=== PATIENT | male | born 1955 | race Caucasian/White ===

== ENCOUNTER 2017-09-14 16:44 | Inpatient (IN) | payer OTHER, MEDICARE ==
--- NOTE | 2017-09-14 17:23 | ER Document Report ---
ED Medical Screen (RME) - General Chief Complaint: Foot Pain Stated Complaint: FOOT PAIN Time Seen by Provider: 09/14/17 17:11 Notes: 62-year-old NIDDM patient with pain and swelling to his left foot and leg. He has had callus underneath the foot for quite some time, he states there is been some drainage in the past 1-2 days. I have greeted and performed a rapid initial assessment of this patient. A comprehensive ED assessment and evaluation of the patient, analysis of test results and completion of the medical decision making process will be conducted by additional ED providers. TRAVEL OUTSIDE OF THE [place] IN LAST 30 DAYS: No - Related Data Allergies/Adverse Reactions: fluorescein Allergy (Verified 09/14/17 17:12) mushroom Allergy (Verified 09/14/17 17:12) Past Medical History - Social History Frequency of alcohol use: None Drug Abuse: None - Past Medical History Cardiac Medical History: Reports: Hx Coronary Artery Disease - CARDIOMYOPATHY, Hx Hypertension Denies: Hx Heart Attack Pulmonary Medical History: Denies: Hx Asthma, Hx Bronchitis, Hx COPD, Hx Pneumonia Neurological Medical History: Denies: Hx Cerebrovascular Accident, Hx Seizures Endocrine Medical History: Reports: Hx Diabetes Mellitus Type 2 Renal/ Medical History: Denies: Hx Peritoneal Dialysis Musculoskeltal Medical History: Reports Hx Arthritis - Immunizations Hx Diphtheria, Pertussis, Tetanus Vaccination: No Physical Exam - Vital signs Vitals: Temp Pulse Resp BP Pulse Ox 98.2 F 112 H 16 139/63 H 96 09/14/17 16:52 09/14/17 16:52 09/14/17 16:52 09/14/17 16:52 09/14/17 16:52 Course - Vital Signs Vital signs: Temp Pulse Resp BP Pulse Ox 98.2 F 112 H 16 139/63 H 96 09/14/17 16:52 09/14/17 16:52 09/14/17 16:52 09/14/17 16:52 09/14/17 16:52
[2017-09-14 17:48] LABS: ABSOLUTE BASOPHILS # (AUTO) 0.1 10^3/uL (0.0-0.2); ABSOLUTE EOSINOPHILS # (AUTO) 0.1 10^3/uL (0.0-0.6); ABSOLUTE MONOCYTES (AUTO) 1.3 10^3/uL (0.1-1.4); ABSOLUTE NEUT (AUTO) 14.1 10^3/uL (1.7-8.2); BASOPHILS % (AUTO) 0.5 % (0-2); EOSINOPHILS % (AUTO) 0.4 % (0-6); HEMATOCRIT 36.2 % (37.9-51.0); HEMOGLOBIN 12.6 g/dL (13.5-17.0); LYMPHOCYTES % (AUTO) 5.9 % (13-45); MEAN CORPUSCULAR HEMOGLOBIN 30.5 pg (27.0-33.4); MEAN CORPUSCULAR HGB CONC 34.8 g/dL (32.0-36.0); MEAN CORPUSCULAR VOLUME 88 fl (80-97); MONOCYTES % (AUTO) 7.7 % (3-13); PLATELET COUNT 305 10^3/uL (150-450); RED BLOOD COUNT 4.13 10^6/uL (4.35-5.55); RED CELL DISTRIBUTION WIDTH 12.7 % (11.5-14.0); SEGMENTED NEUTROPHILS % (AUTO) 85.5 % (42-78); TOTAL CELLS COUNTED % (AUTO) 100 %; WHITE BLOOD COUNT 16.5 10^3/uL (4.0-10.5)
[2017-09-14] MEDS ORDERED: ERTAPENEM SODIUM INJ 1 GM VIAL IV ONE (17:59)
--- NOTE | 2017-09-14 18:00 | RADIOLOGY REPORT (SQ) ---
EXAM DESCRIPTION: FOOT LEFT COMPLETE COMPLETED DATE/TIME: 09/14/2017 5:46 pm REASON FOR STUDY: draining diabetic ulcer COMPARISON: 11/04/2010. NUMBER OF VIEWS: Three views. TECHNIQUE: AP, lateral and oblique radiographic images acquired of the left foot. LIMITATIONS: None. FINDINGS: MINERALIZATION: Normal. BONES: No acute fracture or dislocation. Heel spur. Degenerative changes in the midfoot. Chronic c hanges in the 1st metatarsal phalangeal joint. No focal bony destruction. JOINTS: No effusions. SOFT TISSUES: Soft tissue swelling. Ulceration with soft tissue gas in the plantar soft tissues. No radiopaque foreign body. OTHER: No other significant finding. IMPRESSION: SOFT TISSUE SWELLING WITH ULCERATION AND SOFT TISSUE GAS IN THE PLANTAR SOFT TISSUES. C HRONIC BONY CHANGES. NO ACUTE BONY FINDINGS. TECHNICAL DOCUMENTATION: JOB ID: [id number] [employer]- All Rights Reserved Reading location - IP/workstation name: [email or web address]
[2017-09-14 18:06] LABS: ALANINE AMINOTRANSFERASE 20 U/L (21-72); ALKALINE PHOSPHATASE 74 U/L (38-126); ANION GAP 10 (5-19); ASPARTATE AMINO TRANSFERASE 15 U/L (17-59); BILIRUBIN,DIRECT 0.3 mg/dL (0.0-0.4); BLOOD UREA NITROGEN 16 mg/dL (7-20); CALCIUM 9.5 mg/dL (8.4-10.2); CARBON DIOXIDE 29 mmol/L (22-30); CHLORIDE 88 mmol/L (98-107); GLUCOSE 219 mg/dL (75-110); POTASSIUM 4.1 mmol/L (3.6-5.0); SODIUM 127.3 mmol/L (137-145); TOTAL PROTEIN 6.4 g/dL (6.3-8.2)
[2017-09-14] MEDS ORDERED: VANCOMYCIN HCL INJ 1000 MG VIAL IV ONE (19:42)
[2017-09-14] MEDS ORDERED: CEFTRIAXONE INJ 1000 MG VIAL IV ONE (19:43)
--- NOTE | 2017-09-14 19:49 | ER Document Report ---
ED Extremity Problem, Lower - General Chief Complaint: Foot Pain Stated Complaint: FOOT PAIN Time Seen by Provider: 09/14/17 17:11 Notes: Patient is a 62-year-old male that comes emergency department for chief complaint of pain, redness, and spreading redness to his left foot for the past 4 days. He has diabetes, neuropathy, he is unsure of any wound, he denies history of the same. He does not report fever or chills, nausea or vomiting, or any other specific symptoms at this time. Past medical history of hypertension, orthopedic surgeries, smoking. TRAVEL OUTSIDE OF THE [place] IN LAST 30 DAYS: No - Related Data Allergies/Adverse Reactions: fluorescein Allergy (Verified 09/14/17 17:12) mushroom Allergy (Verified 09/14/17 17:12) Past Medical History - General Information source: Patient - Social History Smoking Status: Current Every Day Smoker Frequency of alcohol use: None Drug Abuse: None Lives with: Family Family History: Reviewed & Not Pertinent Patient has suicidal ideation: No Patient has homicidal ideation: No - Past Medical History Cardiac Medical History: Reports: Hx Coronary Artery Disease - CARDIOMYOPATHY, Hx Hypertension Denies: Hx Heart Attack Pulmonary Medical History: Denies: Hx Asthma, Hx Bronchitis, Hx COPD, Hx Pneumonia Neurological Medical History: Denies: Hx Cerebrovascular Accident, Hx Seizures Endocrine Medical History: Reports: Hx Diabetes Mellitus Type 2 Renal/ Medical History: Denies: Hx Peritoneal Dialysis Musculoskeltal Medical History: Reports Hx Arthritis Past Surgical History: Reports: Hx Herniorrhaphy - Immunizations Hx Diphtheria, Pertussis, Tetanus Vaccination: No Review of Systems - Review of Systems Constitutional: No symptoms reported EENT: No symptoms reported Cardiovascular: No symptoms reported Respiratory: No symptoms reported Gastrointestinal: No symptoms reported Genitourinary: No symptoms reported Male Genitourinary: No symptoms reported Musculoskeletal: See HPI Skin: See HPI Hematologic/Lymphatic: No symptoms reported Neurological/Psychological: No symptoms reported Physical Exam - Vital signs Vitals: Temp Pulse Resp BP Pulse Ox 98.2 F 112 H 16 139/63 H 96 09/14/17 16:52 09/14/17 16:52 09/14/17 16:52 09/14/17 16:52 09/14/17 16:52 Interpretation: Normal - General General appearance: Appears well In distress: None - HEENT Head: Normocephalic, Atraumatic Eyes: Normal Pupils: PERRL - Respiratory Respiratory status: No respiratory distress Chest status: Nontender Breath sounds: Normal Chest palpation: Normal - Cardiovascular Rhythm: Regular, Tachycardia Heart sounds: Normal auscultation, S1 appreciated, S2 appreciated Murmur: Yes Systolic murmur grade 1-6: 1 Normal capillary refill: Yes - Abdominal Inspection: Normal Distension: No distension Bowel sounds: Normal Tenderness: Nontender Organomegaly: No organomegaly - Back Back: Normal, Nontender - Extremities General upper extremity: Normal inspection, Nontender, Normal color, Normal ROM , Normal temperature General lower extremity: Other - Left foot with plantar wound with missing superficial tissue, erythema, abnormal heat, slight malodorous smell, erythema extends up over the dorsal aspect of the foot with some streaking up the ankle and leg. Capillary refill intact, sensation is decreased, dorsalis pedis pulses normal. - Neurological Neuro grossly intact: Yes Cognition: Normal Orientation: AAOx4 [place]ima Coma Scale Eye Opening: Spontaneous Ghazala Coma Scale Verbal: Oriented Ghazala Coma Scale Motor: Obeys Commands Ghazala Coma Scale Total: 15 Speech: Normal Motor strength normal: LUE, RUE, LLE, RLE Sensory: Normal - Psychological Associated symptoms: Normal affect, Normal mood - Skin Skin Temperature: Warm Skin Moisture: Dry Skin Color: Normal Course - Re-evaluation Re-evalutation: Patient's foot examination is concerning, consistent with diabetic wound infection with spreading cellulitis. Patient has leukocytosis, tachycardia. X- ray shows gas formation. 09/14/17 20:[address] Ruby, surgeon on-call, he will come evaluate the patient, he recommends admission to hospitalist with surgical consult at this time. 09/14/17 20:[address] Eduardo, internal medicine, he states he will consult on the patient but he wants the surgeon to admit the patient. Dr. Ruby evaluated the patient at bedside, recommends patient be taken to the operating room to clean out for progression and gas gangrene makes the situation worse. Patient does state agreement with plan. - Vital Signs Vital signs: Temp Pulse Resp BP Pulse Ox 98.8 F 94 18 123/66 94 09/15/17 03:47 09/15/17 03:47 09/15/17 03:47 09/15/17 03:47 04/02/18 03:47 - Laboratory Result Diagrams: 09/14/17 17:42 09/14/17 17:42 Laboratory results interpreted by me: 09/14/17 09/14/17 09/14/17 17:42 17:42 20:15 WBC 16.5 H RBC 4.13 L Hgb 12.6 L Hct 36.2 L Seg Neutrophils % 85.5 H Lymphocytes % 5.9 L Absolute Neutrophils 14.1 H VBG pH 7.44 H Sodium 127.3 L Chloride 88 L Glucose 219 H AST 15 L ALT 20 L Discharge - Discharge Clinical Impression: Cellulitis of left foot Leukocytosis Qualifiers: Leukocytosis type: unspecified Qualified Code(s): D72.829 - Elevated white blood cell count, unspecified Condition: Stable Disposition: ADMITTED INPATIENT Admitting Provider: Surgicalist Unit Admitted: OR
[2017-09-14] MEDS ORDERED: DIPH/PERTUSS(ACELL)/TETANUS VAC/PF 0.5 ML SYR (>=10YO) IM ONE (19:50)
[2017-09-14] MEDS ORDERED: CEFEPIME 2 GM/D5W RTU 2 GM/50 ML RTUPB IV ONE (20:08)
[2017-09-14] MEDS ORDERED: GLUCAGON,HUMAN RECOMB 1 MG INJ IM PRN (20:21)
[2017-09-14] MEDS ORDERED: DEXTROSE 40% GEL 15 GM TUBE PO PRN ×2 (20:21)
[2017-09-14] MEDS ORDERED: DEXTROSE 50%-WATER 25 GM/50 ML DISP.SYRIN IV PRN ×2 (20:21)
[2017-09-14] MEDS ORDERED: NORMAL SALINE 1000 ML 1,000 ML IV ONE (20:23)
[2017-09-14 20:35] LABS: VENOUS BLOOD BASE EXCESS 4.7 mmol/L; VENOUS BLOOD HCO3 29.7 mmol/L (20-32); VENOUS BLOOD PCO2 44.6 mmHg (35-63); VENOUS BLOOD PH 7.44 (7.30-7.42)
--- NOTE | 2017-09-14 21:14 | PDOC H&P ---
History of Present Illness Admission Date/PCP: 09/14/17 20:33 AMIRA PHILLIPS III, MD Patient complains of: Pain foul smell left foot History of Present Illness: TIMO RODRIGUEZ is a 62 year old male Patient reports the emergency department complaining of left foot pain, swelling , drainage, discoloration for the last several days possibly weeks. He has a known chronic left first mal perforans ulcer. He has diabetic neuropathy smokes and peripheral vascular disease. He sees physicians at the [place]. His medical history and records are limited at [facility]. He was evaluated in the emergency department several hours ago by the PA, obtained a foot x-ray which showed gas soft tissues and surgery was consulted; patient is advised admission definitive management. Past Medical History Cardiac Medical History: Reports: Coronary Artery Disease - CARDIOMYOPATHY, Hypertension Denies: Myocardial Infarction Pulmonary Medical History: Denies: Asthma, Bronchitis, Chronic Obstructive Pulmonary Disease (COPD), Pneumonia Neurological Medical History: Denies: Seizures Endocrine Medical History: Reports: Diabetes Mellitus Type 2 Musculoskeltal Medical History: Reports: Arthritis Hematology: Denies: Anemia Past Surgical History Past Surgical History: Reports: Other - Bilateral inguinal hernias. Social History Smoking Status: Current Every Day Smoker Family History Parental Family History Reviewed: Yes Children Family History Reviewed: Yes Sibling(s) Family History Reviewed.: Yes Medication/Allergy Home Medications: Lisinopril/Hydrochlorothiazide [Zestoretic 20-25 Mg Tablet] 1 each PO DAILY 04/26 Metoprolol Tartrate [Lopressor 100 Mg Tablet] 100 mg PO DAILY 05/26/11 Naproxen [Naprosyn] 500 mg PO BID 05/26/11 Carvedilol 3.125 mg PO BID 08/23/15 Glipizide [Glipizide Xl] 10 mg PO ASDIR 08/23/15 Metformin HCl [Glucophage XR 500 mg Tablet] 500 mg PO TID 08/23/15 Aspirin [Aspirin 325 mg Tablet] 325 mg PO DAILY 08/24/15 Allergies/Adverse Reactions: fluorescein Allergy (Verified 09/14/17 17:12) mushroom Allergy (Verified 09/14/17 17:12) Review of Systems Eyes: ABSENT: visual disturbances Ears: ABSENT: hearing changes Cardiovascular: PRESENT: other - Known murmur Respiratory: PRESENT: cough Neurological: PRESENT: other - Peripheral neuropathy chronic Physical Exam Vital Signs: Temp Pulse Resp BP Pulse Ox 98.2 F 112 H 16 139/63 H 96 09/14/17 16:52 09/14/17 16:52 09/14/17 16:52 09/14/17 16:52 09/14/17 16:52 General appearance: PRESENT: mild distress Head exam: PRESENT: normocephalic Eye exam: PRESENT: EOMI Mouth exam: PRESENT: dry mucosa Neck exam: PRESENT: full ROM Respiratory exam: PRESENT: clear to auscultation zabrina Cardiovascular exam: PRESENT: systolic murmur, other - Systolic ejection murmur , grade 4 out of 6, best heard over the left corneal space Vascular exam: PRESENT: other - Unable to palpate pulses of the feet; strong femoral pulses GI/Abdominal exam: PRESENT: soft Rectal exam: PRESENT: deferred Extremities exam: PRESENT: other - Chronic diabetic arthropic changes both feet consistent with Charcot feet worse on the left than the right. Marked discoloration of the forefoot; on the plantar surface first webspace is marked discoloration purulent discharge; a massive hyper keratotic callus over the first tarsal head consistent with chronic mal perforans ulcer. It is boggy, tender. Cannot appreciate any pulses. There is no streaking above the foot. The right great toe plantar and dorsal surface has some ischemic changes. Results Impressions: Foot X-Ray 09/14/17 17:21 IMPRESSION: SOFT TISSUE SWELLING WITH ULCERATION AND SOFT TISSUE GAS IN THE PLANTAR SOFT TISSUES. CHRONIC BONY CHANGES. NO ACUTE BONY FINDINGS. Assessment & Plan - Diagnosis (1) Diabetic infection of left foot Is this a current diagnosis for this admission?: Yes Plan: Impression: This is a serious deep soft tissue infection involving the left foot diabetic related starting from a mal perforans ulcer now with gas forming necrotizing soft tissue infection Recommendations: The patient needs admission to the hospital, IV antibiotics, fluid resuscitation , EKG check and taken to the operating room as soon as possible for debridement of this serious gas-forming tissue infection affecting the viability of his left foot. Patient level of insight into the seriousness of his problem appears limited. By the patient he may require subsequent debridements, possibly more extensive surgery , possible amputation. (2) Necrotizing soft tissue infection Is this a current diagnosis for this admission?: Yes (3) Smoker Is this a current diagnosis for this admission?: Yes (4) Diabetes mellitus Qualifiers: Diabetes mellitus type: type 2 Diabetes mellitus custodial insulin use: without custodial use Diabetes mellitus complication status: with skin complications Diabetes mellitus complication detail: with other skin complication Qualified Code(s): E11.628 - Type 2 diabetes mellitus with other skin complications Is this a current diagnosis for this admission?: Yes (5) Peripheral vascular disease Is this a current diagnosis for this admission?: Yes (6) Systolic ejection murmur Is this a current diagnosis for this admission?: Yes - Time Time Spent: 50 to 70 Minutes Critical Time spent with patient: 15-24 minutes - Inpatient Certification Based on my medical assessment, after consideration of the patient's comorbidities, presenting symptoms, or acuity I expect that the services needed warrant INPATIENT care.: Yes I certify that my determination is in accordance with my understanding of Medicare's requirements for reasonable and necessary INPATIENT services [42 CFR 412.3e].: Yes Medical Necessity: Need For IV Fluids, Need for Pain Control, Need for IV Antibiotics, Need for Surgery
[2017-09-14] MEDS ORDERED: EPHEDRINE SULFATE INJ 50 MG/1 ML AMPULE ONE (21:22)
[2017-09-14] MEDS: INSULIN LISPRO 100 UNIT/ML 3 ML VIAL SUBCUT PRN (21:22)
[2017-09-14] MEDS ORDERED: BUPIVACAINE HCL 0.25 % INJ/PF (2.5 MG/1 ML) 30 ML VIAL ONE (21:22)
[2017-09-14] MEDS ORDERED: MIDAZOLAM 2 MG/2 ML INJ ONE ×2 (21:22→21:58)
[2017-09-14] MEDS ORDERED: FENTANYL CITRATE INJ/PF 100 MCG/2 ML AMPUL ONE (21:22)
[2017-09-14] MEDS ORDERED: ONDANSETRON HCL INJ/PF 4 MG/2 ML SDV ONE (21:23)
[2017-09-14] MEDS ORDERED: LIDOCAINE 0.5% INJ-PF (5 MG/ML) 50 ML SDV ONE (21:23)
[2017-09-14] MEDS ORDERED: PROPOFOL INJ 200 MG/20 ML VIAL IV ONE (21:23)
[2017-09-14] MEDS ORDERED: FENTANYL CITRATE INJ/PF 100 MCG/2 ML AMPUL IV PRN ×3 (21:33)
[2017-09-14] MEDS ORDERED: MEPERIDINE HCL/PF INJ 25 MG/1 ML DISP.SYRIN IV PRN (21:33)
[2017-09-14] MEDS ORDERED: ONDANSETRON HCL INJ/PF 4 MG/2 ML SDV IV PRN (21:33)
[2017-09-14] MEDS ORDERED: DIPHENHYDRAMINE HCL 50 MG/ML VIAL IV PRN (21:33)
--- NOTE | 2017-09-14 22:16 | EKG REPORT ---
SEVERITY:- NORMAL ECG - SINUS RHYTHM : Confirmed by: Donald Zamora MD 14-Sep-2017 22:15:44
[2017-09-14] MEDS ORDERED: KETOROLAC TROMETHAMINE INJ/PF 30 MG/1 ML SDV IV PRN (22:26)
[2017-09-14] MEDS ORDERED: KETOROLAC TROMETHAMINE 10 MG TABLET PO PRN (22:26)
--- NOTE | 2017-09-14 22:35 | Operative Report ---
Operative Report DATE OF SURGERY: 09/14/17 PREOPERATIVE DIAGNOSIS: Septic diabetic left foot with gas forming organisms deep soft tissue infection involving first webspace and right great toe POSTOPERATIVE DIAGNOSIS: same OPERATION: Excisional debridement of skin subcutaneous tissue and fascia of the left foot including the web space, extending to the plantar surface of the great toe. SURGEON: ABHILASH KINGSLEY ANESTHESIA: LMAC TISSUE REMOVED OR ALTERED: skin, SQ tissue COMPLICATIONS: none ESTIMATED BLOOD LOSS: 20 cc INTRAOPERATIVE FINDINGS: see below PROCEDURE: The patient was taken to the operating room where LMAC anesthesia was induced. Left foot was isolated, prepped and draped sterile fashion. Surgical plan surgical timeout conducted. Because the patient had an insensate foot, no local anesthesia was applied. Using a #10 blade, a large wedge of skin and subcutaneous tissue and fascia was excised from the left first webspace extending from the dorsum of the foot across the base of the toes, and on the plantar surface of the foot. Additional skin and subcutaneous tissue was sharply debrided from the base of the left great toe, plantar surface. Additional subcutaneous tissue on the plantar surface of the foot was excisionally debrided with 10 blade for chunks of tissue approximately 3 x 5 x 3 cm. There was reasonably brisk bleeding. The first metatarsal head mal perforans ulcer was sharply debrided of callus. Additional small pockets of nonviable tissue were broken up. No counterincisions were felt necessary. Wound irrigated multiple times with saline. We debrided all of the chronic subcutaneous tissue and skin. Hemostasis was achieved with cautery, Surgicel. Sterile 4 x 4's between the toes, over the first webspace were applied and the foot wrapped in Kerlix. Patient tolerated procedure well, taken recovery in stable condition.
[2017-09-15] MEDS ORDERED: AMPICILLIN SOD/SULBACTAM 3 GM VIAL IV PRN (02:01)
[2017-09-15] MEDS: NORMAL SALINE 1000 ML 1,000 ML IV PRN ×2 (04:50→13:31)
[2017-09-15] MEDS ORDERED: AMPICILLIN SOD/SULBACTAM 3 GM VIAL ONE (04:52)
[2017-09-15] MEDS: AMPICILLIN SODIUM/SULBACTAM NA 3 GM in NORMAL SALINE 100 ML IV SCH ×3 (05:09→23:18)
[2017-09-15] MEDS: INSULIN LISPRO 100 UNIT/ML 3 ML VIAL SUBCUT PRN ×2 (07:39→17:22)
--- NOTE | 2017-09-15 08:37 | PDOC PROGRESS REPORT ---
Subjective Progress Note for:: 09/15/17 Subjective:: no pains Reason For Visit: SEPTIC DIABETIC LEFT FOOT Physical Exam Vital Signs: Temp Pulse Resp BP Pulse Ox 98.8 F 92 18 124/60 96 09/15/17 07:43 09/15/17 07:43 09/15/17 07:43 09/15/17 07:43 09/15/17 07:43 Intake & Output 09/14/17 09/15/17 09/16/17 06:59 06:59 06:59 Intake Total 2280 Output Total 1420 Balance 860 Weight 100.3 kg Exam: dressings removed. No active bleeding noted. Based of I&D site somewhat dusky. No active bleeding nor drainage noted. Changed dressing and placed xeroform gauze as first layer then 4x4 and jose. Results Impressions: Foot X-Ray 09/14/17 17:21 IMPRESSION: SOFT TISSUE SWELLING WITH ULCERATION AND SOFT TISSUE GAS IN THE PLANTAR SOFT TISSUES. CHRONIC BONY CHANGES. NO ACUTE BONY FINDINGS. Assessment & Plan - Time Time Spent with patient: 15-24 minutes - Plan Summary Plan Summary: Continue IV antibiotics, Continue daily wound dressings F/U at wound care center.
[2017-09-15] MEDS: ASPIRIN 325 MG TABLET PO SCH (10:21)
[2017-09-15] MEDS: CARVEDILOL 3.125 MG TABLET PO SCH ×2 (10:21→17:22)
[2017-09-15 20:58] LABS: ANION GAP 6 (5-19); BLOOD UREA NITROGEN 13 mg/dL (7-20); CALCIUM 8.5 mg/dL (8.4-10.2); CARBON DIOXIDE 27 mmol/L (22-30); CHLORIDE 98 mmol/L (98-107); GLUCOSE 234 mg/dL (75-110); POTASSIUM 3.9 mmol/L (3.6-5.0); SODIUM 130.9 mmol/L (137-145)
[2017-09-16] MEDS: AMPICILLIN SODIUM/SULBACTAM NA 3 GM in NORMAL SALINE 100 ML IV SCH ×3 (05:57→22:43)
[2017-09-16] MEDS: INSULIN LISPRO 100 UNIT/ML 3 ML VIAL SUBCUT PRN ×3 (07:41→17:46)
[2017-09-16] MEDS: ASPIRIN 325 MG TABLET PO SCH (09:21)
[2017-09-16] MEDS: CARVEDILOL 3.125 MG TABLET PO SCH ×2 (09:21→17:44)
[2017-09-16] MEDS: NORMAL SALINE 1000 ML 1,000 ML IV PRN (10:40)
[2017-09-16 21:13] LABS: BLOOD UREA NITROGEN 10 mg/dL (7-20); CALCIUM 8.5 mg/dL (8.4-10.2); GLUCOSE 224 mg/dL (75-110); POTASSIUM 4.1 mmol/L (3.6-5.0)
[2017-09-16 21:19] LABS: CARBON DIOXIDE 27 mmol/L (22-30); CHLORIDE 101 mmol/L (98-107); SODIUM 132.2 mmol/L (137-145)
[2017-09-16 21:20] LABS: ANION GAP 4 (5-19)
--- NOTE | 2017-09-16 23:29 | PDOC PROGRESS REPORT ---
Subjective Progress Note for:: 09/16/17 Subjective:: Pains right foot Reason For Visit: SEPTIC DIABETIC LEFT FOOT Physical Exam Vital Signs: Temp Pulse Resp BP Pulse Ox 98.3 F 73 18 142/69 H 98 09/16/17 20:04 09/16/17 20:04 09/16/17 20:04 09/16/17 20:04 09/16/17 20:04 Intake & Output 09/15/17 09/16/17 09/17/17 06:59 06:59 06:59 Intake Total 2280 2390 2955 Output Total 1420 1900 850 Balance 544 415 1874 Weight 100.3 kg 100.6 kg Exam: Dressings changed. The wound looks better with reddish coloration. Less tender. Results Laboratory Results: 09/16/17 20:30 09/16/17 20:30 Sodium 132.2 L Potassium 4.1 Chloride 101 Carbon Dioxide 27 Anion Gap 4 L BUN 10 Creatinine 0.64 Est GFR ( Amer) > 60 Est GFR (Non-Af Amer) > 60 Glucose 224 H Calcium 8.5 Impressions: Foot X-Ray 09/14/17 17:21 IMPRESSION: SOFT TISSUE SWELLING WITH ULCERATION AND SOFT TISSUE GAS IN THE PLANTAR SOFT TISSUES. CHRONIC BONY CHANGES. NO ACUTE BONY FINDINGS. Assessment & Plan - Diagnosis (1) Diabetes mellitus Qualifiers: Diabetes mellitus type: type 2 Diabetes mellitus mcfp insulin use: without mcfp use Diabetes mellitus complication status: with skin complications Diabetes mellitus complication detail: with other skin complication Qualified Code(s): E11.628 - Type 2 diabetes mellitus with other skin complications Is this a current diagnosis for this admission?: Yes (2) Diabetic infection of left foot Is this a current diagnosis for this admission?: Yes (3) Peripheral vascular disease Is this a current diagnosis for this admission?: Yes - Time Time Spent with patient: 15-24 minutes - Plan Summary Plan Summary: Continue local wound care. IV antibiotics another 24 hrs Possible discharge with home care and further follow up at the Wound care center
[2017-09-17] MEDS ORDERED: AMPICILLIN SOD/SULBACTAM 3 GM VIAL ONE (06:27)
[2017-09-17] MEDS: AMPICILLIN SODIUM/SULBACTAM NA 3 GM in NORMAL SALINE 100 ML IV SCH ×3 (06:57→22:20)
[2017-09-17] MEDS: INSULIN LISPRO 100 UNIT/ML 3 ML VIAL SUBCUT PRN ×3 (08:02→17:37)
[2017-09-17] MEDS: ASPIRIN 325 MG TABLET PO SCH (09:32)
[2017-09-17] MEDS: CARVEDILOL 3.125 MG TABLET PO SCH ×2 (09:32→17:38)
[2017-09-17] MEDS: NORMAL SALINE 1000 ML 1,000 ML IV PRN ×2 (10:55→18:17)
--- NOTE | 2017-09-17 19:02 | PDOC PROGRESS REPORT ---
Subjective Progress Note for:: 09/17/17 Subjective:: Pains on the left foot operated side Reason For Visit: SEPTIC DIABETIC LEFT FOOT Physical Exam Vital Signs: Temp Pulse Resp BP Pulse Ox 97.5 F 65 15 157/73 H 97 09/17/17 15:20 09/17/17 15:20 09/17/17 15:20 09/17/17 15:20 09/17/17 15:20 Intake & Output 09/16/17 09/17/17 09/18/17 06:59 06:59 06:59 Intake Total 2390 2955 2212 Output Total 1900 850 Balance 490 2105 2212 Weight 100.6 kg 100.4 kg Exam: Left foot surgical site looks catch basin cleaner but still with surrounding erythema and tenderness. Results Laboratory Results: 09/16/17 20:30 09/16/17 20:30 Sodium 132.2 L Potassium 4.1 Chloride 101 Carbon Dioxide 27 Anion Gap 4 L BUN 10 Creatinine 0.64 Est GFR ( Amer) > 60 Est GFR (Non-Af Amer) > 60 Glucose 224 H Calcium 8.5 Impressions: Foot X-Ray 09/14/17 17:21 IMPRESSION: SOFT TISSUE SWELLING WITH ULCERATION AND SOFT TISSUE GAS IN THE PLANTAR SOFT TISSUES. CHRONIC BONY CHANGES. NO ACUTE BONY FINDINGS. Assessment & Plan - Diagnosis (1) Diabetes mellitus Qualifiers: Diabetes mellitus type: type 2 Diabetes mellitus adjunct faculty for medical terminology insulin use: without senior care use Diabetes mellitus complication status: with skin complications Diabetes mellitus complication detail: with other skin complication Qualified Code(s): E11.628 - Type 2 diabetes mellitus with other skin complications Is this a current diagnosis for this admission?: Yes (2) Diabetic infection of left foot Is this a current diagnosis for this admission?: Yes (3) Peripheral vascular disease Is this a current diagnosis for this admission?: Yes - Time Time Spent with patient: 15-24 minutes - Plan Summary Plan Summary: Wound redressed Continue antibiotics Discharge tomorrow if cellulitis improving. Arrange daily dressing changes at home by visiting nurse daily. Arrange follow up at the Wound Care Center in 1-2 weeks
[2017-09-17 20:57] LABS: ANION GAP 7 (5-19); BLOOD UREA NITROGEN 10 mg/dL (7-20); CALCIUM 8.6 mg/dL (8.4-10.2); CARBON DIOXIDE 25 mmol/L (22-30); CHLORIDE 103 mmol/L (98-107); GLUCOSE 182 mg/dL (75-110); POTASSIUM 4.1 mmol/L (3.6-5.0); SODIUM 134.9 mmol/L (137-145)
[2017-09-18] MEDS: NORMAL SALINE 1000 ML 1,000 ML IV PRN ×2 (03:01→21:13)
[2017-09-18] MEDS: AMPICILLIN SODIUM/SULBACTAM NA 3 GM in NORMAL SALINE 100 ML IV SCH ×3 (06:08→22:07)
[2017-09-18] MEDS: INSULIN LISPRO 100 UNIT/ML 3 ML VIAL SUBCUT PRN ×3 (08:07→17:13)
[2017-09-18] MEDS: ASPIRIN 325 MG TABLET PO SCH (09:30)
[2017-09-18] MEDS: CARVEDILOL 3.125 MG TABLET PO SCH ×2 (09:30→18:23)
--- NOTE | 2017-09-18 09:39 | PDOC PROGRESS REPORT ---
Subjective Progress Note for:: 09/18/17 Reason For Visit: SEPTIC DIABETIC LEFT FOOT No complaints; getting about pivoting Physical Exam Vital Signs: Temp Pulse Resp BP Pulse Ox 97.7 F 68 18 152/76 H 97 09/18/17 07:39 09/18/17 07:39 09/18/17 07:39 09/18/17 07:39 09/18/17 07:39 Intake & Output 09/17/17 09/18/17 09/19/17 06:59 06:59 06:59 Intake Total 2955 2212 Output Total 850 Balance 2105 2212 Weight 100.4 kg 104.8 kg General appearance: PRESENT: no acute distress Musculoskeletal exam: PRESENT: other - Dressing removed; this skin slough around the great toe treated with gauze. The left great toe was still erythematous; there is no progression of the foot however. The base of the wound is reasonably clean. There is exposed flexor tendon. Results Laboratory Results: 09/17/17 20:25 09/17/17 20:25 Sodium 134.9 L Potassium 4.1 Chloride 103 Carbon Dioxide 25 Anion Gap 7 BUN 10 Creatinine 0.71 Est GFR ( Amer) > 60 Est GFR (Non-Af Amer) > 60 Glucose 182 H Calcium 8.6 Impressions: Foot X-Ray 09/14/17 17:21 IMPRESSION: SOFT TISSUE SWELLING WITH ULCERATION AND SOFT TISSUE GAS IN THE PLANTAR SOFT TISSUES. CHRONIC BONY CHANGES. NO ACUTE BONY FINDINGS. Assessment & Plan - Diagnosis (1) Diabetic infection of left foot Is this a current diagnosis for this admission?: Yes Plan: Postoperative day 4 status post debridement left foot with deep soft tissue infection involving the webspace; the left great toe remains viable: Cellulitis not resolved; degree of granulation tissue minimal. Recommendations and plan: 1. Will expand antimicrobial coverage. Cultures not back. Patient growing diphtheroids, Prevotella and alpha hemolytic strep. Will start aztreonam. 2. We will start wound VAC therapy, orders activated. 3. Will obtain arterial duplex study lower extremities to fine pathoanatomy of patient's peripheral vascular disease. 4. We will get patient a surgical boot. (2) Necrotizing soft tissue infection Is this a current diagnosis for this admission?: Yes (3) Smoker Is this a current diagnosis for this admission?: Yes (4) Diabetes mellitus Qualifiers: Diabetes mellitus type: type 2 Diabetes mellitus assisted insulin use: without termite technician use Diabetes mellitus complication status: with skin complications Diabetes mellitus complication detail: with other skin complication Qualified Code(s): E11.628 - Type 2 diabetes mellitus with other skin complications Is this a current diagnosis for this admission?: Yes (5) Peripheral vascular disease Is this a current diagnosis for this admission?: Yes (6) Systolic ejection murmur Is this a current diagnosis for this admission?: Yes
[2017-09-18] MEDS ORDERED: INSULIN LISPRO 100 UNIT/ML 3 ML VIAL ONE (12:41)
[2017-09-18] MEDS ORDERED: AZTREONAM INJ 1 GM VIAL IV SCH (14:00)
[2017-09-18] MEDS: AZTREONAM 1 GM in DEXTROSE 5%-WATER 50 ML IV SCH ×2 (14:28→21:13)
--- NOTE | 2017-09-18 15:51 | RADIOLOGY REPORT (SQ) ---
EXAM DESCRIPTION: ARTERIAL LOWER EXTREM BILAT COMPLETED DATE/TIME: 09/18/2017 3:08 pm REASON FOR STUDY: Poor wound healing COMPARISON: None. TECHNIQUE: Dynamic and static wasserman scale and color images acquired of the lower extremity arteries. Additional selected spectral images recorded. ABIs were not recorded, patient could not tolerate an kle cuffs. LIMITATIONS: None. FINDINGS: RIGHT LEG: ABIS: Not performed INFLOW ARTERIES: Normal, no obstruction evident. FEMORAL ARTERIES:Multiphasic waveforms. Normal, no velocity elevation to suggest focal stenosis. Norm al color Doppler evaluation. No aneurysm. POPLITEAL ARTERY:Multiphasic waveforms. Normal, no velocity elevation to suggest focal stenosis. Norm al color Doppler evaluation. No aneurysm. PATENT TIBIOPERONEAL TRUNK AND 3 VESSEL RUNOFF: Yes, normal vessels. TBI: Not performed. OTHER: No other significant finding. LEFT LEG: ABIS: Not performed INFLOW ARTERIES: Normal, no obstruction evident. FEMORAL ARTERIES:Multiphasic waveforms. Normal, no velocity elevation to suggest focal stenosis. Norm al color Doppler evaluation. No aneurysm. POPLITEAL ARTERY:Multiphasic waveforms. Normal, no velocity elevation to suggest focal stenosis. Norm al color Doppler evaluation. No aneurysm. PATENT TIBIOPERONEAL TRUNK AND 3 VESSEL RUNOFF: Yes, normal vessels. TBI: Not performed. OTHER: No other significant finding. IMPRESSION: NORMAL BILATERAL LOWER EXTREMITY ARTERIAL DOPPLER WITHOUT ABIs. COMMENT: [facility] NORMAL: Greater than 1.0 MINIMAL DISEASE: 0.9 to 1.0 CLAUDICATION: 0.5 to 0.9 SEVERE ARTERIAL DISEASE: Less than 0.5 [facility] NORMAL: Greater than 1.0 (1.2 If Heavy Calcifications) NORMAL TO MILD ISCHEMIA: 0.8 to 1.0 MODERATE ISCHEMIA: 0.4 to 0.8 SEVERE ISCHEMIA: Less than 0.4 TECHNICAL DOCUMENTATION: JOB ID: [id number] [employer]- All Rights Reserved Reading location - IP/workstation name: [email or web address]
[2017-09-18 20:57] LABS: ANION GAP 8 (5-19); BLOOD UREA NITROGEN 13 mg/dL (7-20); CARBON DIOXIDE 29 mmol/L (22-30); CHLORIDE 101 mmol/L (98-107); GLUCOSE 223 mg/dL (75-110); POTASSIUM 4.6 mmol/L (3.6-5.0)
[2017-09-19] MEDS: NORMAL SALINE 1000 ML 1,000 ML IV PRN ×2 (05:49→17:31)
[2017-09-19] MEDS: AZTREONAM 1 GM in DEXTROSE 5%-WATER 50 ML IV SCH ×3 (05:49→21:15)
[2017-09-19 06:21] LABS: ABSOLUTE EOSINOPHILS # (AUTO) 0.3 10^3/uL (0.0-0.6); ABSOLUTE LYMPHOCYTES (AUTO) 1.8 10^3/uL (0.5-4.7); ABSOLUTE MONOCYTES (AUTO) 0.7 10^3/uL (0.1-1.4); ABSOLUTE NEUT (AUTO) 4.9 10^3/uL (1.7-8.2); BASOPHILS % (AUTO) 0.5 % (0-2); EOSINOPHILS % (AUTO) 3.4 % (0-6); HEMATOCRIT 30.7 % (37.9-51.0); HEMOGLOBIN 10.5 g/dL (13.5-17.0); LYMPHOCYTES % (AUTO) 23.7 % (13-45); MEAN CORPUSCULAR HEMOGLOBIN 30.2 pg (27.0-33.4); MEAN CORPUSCULAR HGB CONC 34.3 g/dL (32.0-36.0); MEAN CORPUSCULAR VOLUME 88 fl (80-97); MONOCYTES % (AUTO) 9.5 % (3-13); PLATELET COUNT 360 10^3/uL (150-450); RED BLOOD COUNT 3.48 10^6/uL (4.35-5.55); RED CELL DISTRIBUTION WIDTH 12.3 % (11.5-14.0); SEGMENTED NEUTROPHILS % (AUTO) 62.9 % (42-78); TOTAL CELLS COUNTED % (AUTO) 100 %; WHITE BLOOD COUNT 7.8 10^3/uL (4.0-10.5)
[2017-09-19] MEDS: AMPICILLIN SODIUM/SULBACTAM NA 3 GM in NORMAL SALINE 100 ML IV SCH ×3 (06:31→21:50)
[2017-09-19] MEDS: INSULIN LISPRO 100 UNIT/ML 3 ML VIAL SUBCUT PRN ×2 (08:05→12:15)
[2017-09-19] MEDS: ASPIRIN 325 MG TABLET PO SCH (10:04)
[2017-09-19] MEDS: CARVEDILOL 3.125 MG TABLET PO SCH ×2 (10:05→17:31)
[2017-09-19] MEDS ORDERED: NICOTINE 14 MG/24 HR PATCH.TD24 TD PRN (18:22)
--- NOTE | 2017-09-19 18:23 | PDOC CONSULTATION ---
Consultation Consult Date: 09/19/17 Attending physician:: ABHILASH KINGSLEY Consult reason:: hypertension History of Present Illness Admission Date/PCP: 09/14/17 20:33 AMIRA PHILLIPS III, MD History of Present Illness: TIMO RODRIGUEZ is a 62 year old male Patient reports the emergency department complaining of left foot pain, swelling , drainage, discoloration for the last several days possibly weeks. He has a known chronic left first mal perforans ulcer. He has diabetic neuropathy smokes and peripheral vascular disease. He sees physicians at the [place]. His medical history and records are limited at [facility]. He was evaluated in the emergency department. A foot x-ray showed gas soft tissues and surgery was consulted; patient is advised admission definitive management. He has HTN and DM. Hospitalists consulted to assist in BP management. The patient is s/p debridement of left foot. He has a wound vac in place. He is comfortable. Past Medical History Cardiac Medical History: Reports: Coronary Artery Disease - CARDIOMYOPATHY, Hypertension Denies: Myocardial Infarction Pulmonary Medical History: Denies: Asthma, Bronchitis, Chronic Obstructive Pulmonary Disease (COPD), Pneumonia Neurological Medical History: Denies: Seizures Endocrine Medical History: Reports: Diabetes Mellitus Type 2 Musculoskeltal Medical History: Reports: Arthritis Psychiatric Medical History: Reports: Depression Hematology: Denies: Anemia Past Surgical History Past Surgical History: Reports: Herniorrhaphy, Other - Bilateral inguinal hernias. Social History Lives with: Family Smoking Status: Current Every Day Smoker Cigarettes Packs Per Day: 0.5 Number of Years Smokin Last Time Smoked: 09/14/17 Frequency of Alcohol Use: None Hx Prescription Drug Abuse: No - Advance Directive Resuscitation Status: Full Code Family History Family History: Reviewed & Not Pertinent Parental Family History Reviewed: No Children Family History Reviewed: No Sibling(s) Family History Reviewed.: No Medication/Allergy Home Medications: Lisinopril/Hydrochlorothiazide [Zestoretic 20-25 Mg Tablet] 1 each PO DAILY 04/26 Carvedilol 3.125 mg PO Q12 08/23/15 Glipizide [Glipizide Xl] 10 mg PO BIDBS 08/23/15 Metformin HCl [Glucophage XR 500 mg Tablet] 1,000 mg PO BIDBS 08/23/15 Aspirin [Aspirin 325 mg Tablet] 325 mg PO DAILY 03/10/16 Amlodipine Besylate 5 mg PO DAILY 09/15/17 Allergies/Adverse Reactions: fluorescein Allergy (Verified 09/14/17 17:12) mushroom Allergy (Verified 09/14/17 17:12) Review of Systems Constitutional: ABSENT: chills, fever(s), headache(s), weight gain, weight loss Cardiovascular: ABSENT: chest pain, dyspnea on exertion, edema, orthropnea, palpitations Respiratory: ABSENT: cough, hemoptysis Gastrointestinal: ABSENT: abdominal pain, constipation, diarrhea, hematemesis, hematochezia, nausea, vomiting Neurological: ABSENT: abnormal gait, abnormal speech, confusion, dizziness, focal weakness, syncope Psychiatric: ABSENT: anxiety, depression, homidical ideation, suicidal ideation Physical Exam Vital Signs: Temp Pulse Resp BP Pulse Ox 97.8 F 62 16 185/74 H 100 09/19/17 16:08 09/19/17 17:13 09/19/17 16:08 09/19/17 17:13 09/19/17 16:08 Intake & Output 09/18/17 09/19/17 09/20/17 06:59 06:59 06:59 Intake Total 2211 2049 1440 Balance 2211 2049 1440 Weight 104.8 kg 101.4 kg General appearance: PRESENT: no acute distress, well-developed, well-nourished Head exam: PRESENT: atraumatic, normocephalic Eye exam: PRESENT: EOMI, PERRLA Respiratory exam: PRESENT: clear to auscultation zabrina. ABSENT: rales, rhonchi, wheezes Cardiovascular exam: PRESENT: RRR. ABSENT: diastolic murmur, rubs, systolic murmur GI/Abdominal exam: PRESENT: normal bowel sounds, soft. ABSENT: distended, guarding, mass, organolmegaly, rebound, tenderness Musculoskeletal exam: PRESENT: ambulatory Neurological exam: PRESENT: alert, awake, oriented to person, oriented to place , oriented to time, oriented to situation, CN II-XII grossly intact. ABSENT: motor sensory deficit Psychiatric exam: PRESENT: appropriate affect, normal mood. ABSENT: homicidal ideation, suicidal ideation Results Laboratory Results: 09/19/17 05:36 09/18/17 20:25 09/18/17 09/19/17 20:25 05:36 WBC 7.8 RBC 3.48 L Hgb 10.5 L Hct 30.7 L MCV 88 MCH 30.2 MCHC 34.3 RDW 12.3 Plt Count 360 Seg Neutrophils % 62.9 Lymphocytes % 23.7 Monocytes % 9.5 Eosinophils % 3.4 Basophils % 0.5 Absolute Neutrophils 4.9 Absolute Lymphocytes 1.8 Absolute Monocytes 0.7 Absolute Eosinophils 0.3 Absolute Basophils 0.0 Sodium 138.0 Potassium 4.6 Chloride 101 Carbon Dioxide 29 Anion Gap 8 BUN 13 Creatinine 0.77 Est GFR ( Amer) > 60 Est GFR (Non-Af Amer) > 60 Glucose 223 H Calcium 9.0 09/14/17 22:20 Foot - Tissue Gram Stain - Final Impressions: Foot X-Ray 09/14/17 17:21 IMPRESSION: SOFT TISSUE SWELLING WITH ULCERATION AND SOFT TISSUE GAS IN THE PLANTAR SOFT TISSUES. CHRONIC BONY CHANGES. NO ACUTE BONY FINDINGS. Lower Extremity Ultrasound 09/18/17 09:35 IMPRESSION: NORMAL BILATERAL LOWER EXTREMITY ARTERIAL DOPPLER WITHOUT ABIs. Assessment & Plan - Diagnosis (1) Diabetes mellitus Qualifiers: Diabetes mellitus type: type 2 Diabetes mellitus longterm insulin use: without longterm use Diabetes mellitus complication status: with skin complications Diabetes mellitus complication detail: with other skin complication Qualified Code(s): E11.628 - Type 2 diabetes mellitus with other skin complications Is this a current diagnosis for this admission?: Yes Plan: Add Metformin. Continue glipizide and SSI (2) Hypertension Qualifiers: Hypertension type: essential hypertension Qualified Code(s): I10 - Essential (primary) hypertension Is this a current diagnosis for this admission?: Yes Plan: Add amlodipine, lisinopril, and HCTZ. (3) Diabetic infection of left foot Is this a current diagnosis for this admission?: Yes Plan: Antibiotics and wound vac per surgery (4) Peripheral vascular disease Is this a current diagnosis for this admission?: Yes (5) Smoker Is this a current diagnosis for this admission?: Yes Plan: nicotine patch prn - Time Time Spent: 30 to 50 Minutes Medications reviewed and adjusted accordingly: Yes Anticipated discharge: Home - Inpatient Certification Based on my medical assessment, after consideration of the patient's comorbidities, presenting symptoms, or acuity I expect that the services needed warrant INPATIENT care.: Yes I certify that my determination is in accordance with my understanding of Medicare's requirements for reasonable and necessary INPATIENT services [42 CFR 412.3e].: Yes Medical Necessity: Need for IV Antibiotics
[2017-09-19] MEDS ORDERED: CLONIDINE HCL 0.1 MG TABLET PO PRN (18:28)
[2017-09-19] MEDS ORDERED: AMLODIPINE BESYLATE 5 MG TABLET PO ONE (19:00)
[2017-09-19] MEDS ORDERED: LISINOPRIL 10 MG TABLET PO ONE (19:00)
--- NOTE | 2017-09-19 19:05 | PDOC PROGRESS REPORT ---
Subjective Progress Note for:: 09/19/17 Subjective:: Pains left foot improving Reason For Visit: SEPTIC DIABETIC LEFT FOOT Physical Exam Vital Signs: Temp Pulse Resp BP Pulse Ox 97.8 F 62 16 185/74 H 100 09/19/17 16:08 09/19/17 17:13 09/19/17 16:08 09/19/17 17:13 09/19/17 16:08 Intake & Output 09/18/17 09/19/17 09/20/17 06:59 06:59 06:59 Intake Total 2211 2049 144 Balance 2211 2049 144 Weight 104.8 kg 101.4 kg Exam: wound vac in place functioning well Results Laboratory Results: 09/19/17 05:36 09/18/17 20:25 09/18/17 09/19/17 20:25 05:36 WBC 7.8 RBC 3.48 L Hgb 10.5 L Hct 30.7 L MCV 88 MCH 30.2 MCHC 34.3 RDW 12.3 Plt Count 360 Seg Neutrophils % 62.9 Lymphocytes % 23.7 Monocytes % 9.5 Eosinophils % 3.4 Basophils % 0.5 Absolute Neutrophils 4.9 Absolute Lymphocytes 1.8 Absolute Monocytes 0.7 Absolute Eosinophils 0.3 Absolute Basophils 0.0 Sodium 138.0 Potassium 4.6 Chloride 101 Carbon Dioxide 29 Anion Gap 8 BUN 13 Creatinine 0.77 Est GFR ( Amer) > 60 Est GFR (Non-Af Amer) > 60 Glucose 223 H Calcium 9.0 09/14/17 22:20 Foot - Tissue Gram Stain - Final Impressions: Foot X-Ray 09/14/17 17:21 IMPRESSION: SOFT TISSUE SWELLING WITH ULCERATION AND SOFT TISSUE GAS IN THE PLANTAR SOFT TISSUES. CHRONIC BONY CHANGES. NO ACUTE BONY FINDINGS. Lower Extremity Ultrasound 09/18/17 09:35 IMPRESSION: NORMAL BILATERAL LOWER EXTREMITY ARTERIAL DOPPLER WITHOUT ABIs. Assessment & Plan - Diagnosis (1) Diabetes mellitus Qualifiers: Diabetes mellitus type: type 2 Diabetes mellitus correction insulin use: without intermodal customer service use Diabetes mellitus complication status: with skin complications Diabetes mellitus complication detail: with other skin complication Qualified Code(s): E11.628 - Type 2 diabetes mellitus with other skin complications Is this a current diagnosis for this admission?: Yes (2) Diabetic infection of left foot Is this a current diagnosis for this admission?: Yes (3) Peripheral vascular disease Is this a current diagnosis for this admission?: Yes - Time Time Spent with patient: 15-24 minutes - Plan Summary Plan Summary: Continue IV antibiotics Signed form for Home Vac therapy
[2017-09-19 21:01] LABS: ANION GAP 7 (5-19); BLOOD UREA NITROGEN 13 mg/dL (7-20); CALCIUM 8.8 mg/dL (8.4-10.2); CARBON DIOXIDE 27 mmol/L (22-30); CHLORIDE 100 mmol/L (98-107); GLUCOSE 245 mg/dL (75-110); POTASSIUM 4.4 mmol/L (3.6-5.0); SODIUM 134.2 mmol/L (137-145)
[2017-09-20] MEDS: KETOROLAC TROMETHAMINE 10 MG TABLET PO PRN ×2 (04:17→19:06)
[2017-09-20] MEDS: AZTREONAM 1 GM in DEXTROSE 5%-WATER 50 ML IV SCH ×3 (05:31→21:38)
[2017-09-20] MEDS: AMPICILLIN SODIUM/SULBACTAM NA 3 GM in NORMAL SALINE 100 ML IV SCH ×3 (06:11→22:33)
[2017-09-20] MEDS: GLIPIZIDE XL 5 MG TAB.ER.24 PO SCH ×2 (07:38→16:17)
[2017-09-20] MEDS: INSULIN LISPRO 100 UNIT/ML 3 ML VIAL SUBCUT PRN ×3 (07:38→16:53)
[2017-09-20] MEDS: AMLODIPINE BESYLATE 5 MG TABLET PO SCH (09:55)
[2017-09-20] MEDS: ASPIRIN 325 MG TABLET PO SCH (09:55)
[2017-09-20] MEDS: LISINOPRIL 10 MG TABLET PO SCH (09:56)
[2017-09-20] MEDS: CARVEDILOL 3.125 MG TABLET PO SCH (09:57)
[2017-09-20] MEDS: HYDROCHLOROTHIAZIDE 25 MG TABLET PO SCH (09:57)
--- NOTE | 2017-09-20 14:03 | PDOC PROGRESS REPORT ---
Subjective Progress Note for:: 09/20/17 Subjective:: no c/o Reason For Visit: SEPTIC DIABETIC LEFT FOOT Physical Exam Vital Signs: Temp Pulse Resp BP Pulse Ox 98.1 F 61 17 168/71 H 99 09/20/17 12:03 09/20/17 12:03 09/20/17 12:03 09/20/17 12:03 09/20/17 12:03 Intake & Output 09/19/17 09/20/17 09/21/17 06:59 06:59 06:59 Intake Total 2049 3690 240 Balance 2049 3690 240 Weight 101.4 kg 102.2 kg Exam: wound vac in place. Left big toe just slightly red and swollen. Results Laboratory Results: 09/19/17 05:36 09/19/17 20:33 09/19/17 20:33 Sodium 134.2 L Potassium 4.4 Chloride 100 Carbon Dioxide 27 Anion Gap 7 BUN 13 Creatinine 0.80 Est GFR ( Amer) > 60 Est GFR (Non-Af Amer) > 60 Glucose 245 H Calcium 8.8 09/14/17 22:20 Foot - Tissue Gram Stain - Final Impressions: Foot X-Ray 09/14/17 17:21 IMPRESSION: SOFT TISSUE SWELLING WITH ULCERATION AND SOFT TISSUE GAS IN THE PLANTAR SOFT TISSUES. CHRONIC BONY CHANGES. NO ACUTE BONY FINDINGS. Lower Extremity Ultrasound 09/18/17 09:35 IMPRESSION: NORMAL BILATERAL LOWER EXTREMITY ARTERIAL DOPPLER WITHOUT ABIs. Assessment & Plan - Diagnosis (1) Diabetes mellitus Qualifiers: Diabetes mellitus type: type 2 Diabetes mellitus exterminator helper insulin use: without long-term use Diabetes mellitus complication status: with skin complications Diabetes mellitus complication detail: with other skin complication Qualified Code(s): E11.628 - Type 2 diabetes mellitus with other skin complications Is this a current diagnosis for this admission?: Yes (2) Diabetic infection of left foot Is this a current diagnosis for this admission?: Yes (3) Peripheral vascular disease Is this a current diagnosis for this admission?: Yes - Time Time Spent with patient: 15-24 minutes - Plan Summary Plan Summary: Continue wound vac and IV antibiotics Form for home vac tx signed.
[2017-09-20] MEDS: METFORMIN HCL 500 MG TABLET PO SCH (16:12)
[2017-09-20 21:00] LABS: ANION GAP 8 (5-19); BLOOD UREA NITROGEN 16 mg/dL (7-20); CALCIUM 9.2 mg/dL (8.4-10.2); CARBON DIOXIDE 28 mmol/L (22-30); CHLORIDE 98 mmol/L (98-107); GLUCOSE 144 mg/dL (75-110); POTASSIUM 4.1 mmol/L (3.6-5.0); SODIUM 134.3 mmol/L (137-145)
[2017-09-20] MEDS: CARVEDILOL 12.5 MG TABLET PO SCH (22:33)
[2017-09-21] MEDS: KETOROLAC TROMETHAMINE 10 MG TABLET PO PRN (01:56)
[2017-09-21] MEDS: AZTREONAM 1 GM in DEXTROSE 5%-WATER 50 ML IV SCH ×3 (06:03→22:46)
[2017-09-21] MEDS: AMPICILLIN SODIUM/SULBACTAM NA 3 GM in NORMAL SALINE 100 ML IV SCH ×3 (06:46→21:22)
[2017-09-21] MEDS: GLIPIZIDE XL 5 MG TAB.ER.24 PO SCH ×2 (07:36→16:34)
[2017-09-21] MEDS: METFORMIN HCL 500 MG TABLET PO SCH ×2 (07:36→16:34)
[2017-09-21] MEDS: INSULIN LISPRO 100 UNIT/ML 3 ML VIAL SUBCUT PRN ×2 (07:37→17:00)
--- NOTE | 2017-09-21 08:39 | PDOC PROGRESS REPORT ---
Subjective Progress Note for:: 09/21/17 Subjective:: TIMO RODRIGUEZ is a 62 year old male Patient reports the emergency department complaining of left foot pain, swelling , drainage, discoloration for the last several days possibly weeks. He has a known chronic left first mal perforans ulcer. He has diabetic neuropathy smokes and peripheral vascular disease. He sees physicians at the [place]. His medical history and records are limited at [facility]. He was evaluated in the emergency department. A foot x-ray showed gas soft tissues and surgery was consulted; patient is advised admission definitive management. He has HTN and DM. Hospitalists consulted to assist in BP management. 09/21 No complaints. Reason For Visit: SEPTIC DIABETIC LEFT FOOT Physical Exam Vital Signs: Temp Pulse Resp BP Pulse Ox 98.3 F 64 16 162/71 H 96 09/21/17 07:45 09/21/17 07:45 09/21/17 07:45 09/21/17 07:45 09/21/17 07:45 Intake & Output 09/20/17 09/21/17 09/22/17 06:59 06:59 06:59 Intake Total 3690 1580 Balance 3690 1580 Weight 102.2 kg General appearance: PRESENT: no acute distress Respiratory exam: PRESENT: clear to auscultation zabrina. ABSENT: rales, rhonchi, wheezes Cardiovascular exam: PRESENT: RRR. ABSENT: diastolic murmur, rubs, systolic murmur Extremities exam: PRESENT: other - Wound vac on left foot Results Laboratory Results: 09/19/17 05:36 09/20/17 20:27 09/20/17 20:27 Sodium 134.3 L Potassium 4.1 Chloride 98 Carbon Dioxide 28 Anion Gap 8 BUN 16 Creatinine 0.77 Est GFR ( Amer) > 60 Est GFR (Non-Af Amer) > 60 Glucose 144 H Calcium 9.2 09/14/17 22:20 Foot - Diabetic Ulcer Gram Stain - Final 09/14/17 22:20 Foot - Diabetic Ulcer Wound Culture - Final Strep Anginosus Group Staphylococcus Haemolyticus Peptostreptococcus Species 09/14/17 22:20 Foot - Tissue Gram Stain - Final Impressions: Foot X-Ray 09/14/17 17:21 IMPRESSION: SOFT TISSUE SWELLING WITH ULCERATION AND SOFT TISSUE GAS IN THE PLANTAR SOFT TISSUES. CHRONIC BONY CHANGES. NO ACUTE BONY FINDINGS. Lower Extremity Ultrasound 09/18/17 09:35 IMPRESSION: NORMAL BILATERAL LOWER EXTREMITY ARTERIAL DOPPLER WITHOUT ABIs. Assessment & Plan - Diagnosis (1) Diabetes mellitus Qualifiers: Diabetes mellitus type: type 2 Diabetes mellitus care home insulin use: without whirley operator use Diabetes mellitus complication status: with skin complications Diabetes mellitus complication detail: with other skin complication Qualified Code(s): E11.628 - Type 2 diabetes mellitus with other skin complications Is this a current diagnosis for this admission?: Yes Plan: Better control. Continue metformin, glipizide, and sliding scale (2) Hypertension Qualifiers: Hypertension type: essential hypertension Qualified Code(s): I10 - Essential (primary) hypertension Is this a current diagnosis for this admission?: Yes Plan: Coreg increased yesterday to 12.5 mg BID from 3.125 mg BID. No further changes today. (3) Diabetic infection of left foot Is this a current diagnosis for this admission?: Yes Plan: Antibiotics and wound vac per surgery (4) Peripheral vascular disease Is this a current diagnosis for this admission?: Yes (5) Smoker Is this a current diagnosis for this admission?: Yes Plan: nicotine patch prn - Time Time Spent with patient: 15-24 minutes Smoking Cessation Education: 3 to 10 minutes Medications reviewed and adjusted accordingly: Yes - Inpatient Certification Based on my medical assessment, after consideration of the patient's comorbidities, presenting symptoms, or acuity I expect that the services needed warrant INPATIENT care.: Yes I certify that my determination is in accordance with my understanding of Medicare's requirements for reasonable and necessary INPATIENT services [42 CFR 412.3e].: Yes Medical Necessity: Need for IV Antibiotics
[2017-09-21] MEDS: CARVEDILOL 12.5 MG TABLET PO SCH ×2 (09:17→21:22)
[2017-09-21] MEDS: ASPIRIN 325 MG TABLET PO SCH (09:17)
[2017-09-21] MEDS: HYDROCHLOROTHIAZIDE 25 MG TABLET PO SCH (09:18)
[2017-09-21] MEDS: LISINOPRIL 10 MG TABLET PO SCH (09:18)
[2017-09-21] MEDS: AMLODIPINE BESYLATE 5 MG TABLET PO SCH (09:18)
--- NOTE | 2017-09-21 14:00 | PDOC PROGRESS REPORT ---
Subjective Progress Note for:: 09/21/17 Subjective:: no pains Reason For Visit: SEPTIC DIABETIC LEFT FOOT Physical Exam Vital Signs: Temp Pulse Resp BP Pulse Ox 97.5 F 61 20 137/68 H 97 09/21/17 11:21 09/21/17 11:21 09/21/17 11:21 09/21/17 11:21 09/21/17 11:21 Intake & Output 09/20/17 09/21/17 09/22/17 06:59 06:59 06:59 Intake Total 3690 1580 Balance 3690 1580 Weight 102.2 kg Exam: Vac in Place. Left big toe less inflamed. Less red. Results Laboratory Results: 09/19/17 05:36 09/20/17 20:27 09/20/17 20:27 Sodium 134.3 L Potassium 4.1 Chloride 98 Carbon Dioxide 28 Anion Gap 8 BUN 16 Creatinine 0.77 Est GFR ( Amer) > 60 Est GFR (Non-Af Amer) > 60 Glucose 144 H Calcium 9.2 09/17/17 10:13 Foot - Abscess Gram Stain - Final 09/17/17 10:13 Foot - Abscess Wound Culture - Final NO AEROBIC OR ANAEROBIC ORGANISMS RECOVERED 09/14/17 22:20 Foot - Tissue Gram Stain - Final 09/14/17 22:20 Foot - Diabetic Ulcer Gram Stain - Final 09/14/17 22:20 Foot - Diabetic Ulcer Wound Culture - Final Strep Anginosus Group Staphylococcus Haemolyticus Peptostreptococcus Species Impressions: Foot X-Ray 09/14/17 17:21 IMPRESSION: SOFT TISSUE SWELLING WITH ULCERATION AND SOFT TISSUE GAS IN THE PLANTAR SOFT TISSUES. CHRONIC BONY CHANGES. NO ACUTE BONY FINDINGS. Lower Extremity Ultrasound 09/18/17 09:35 IMPRESSION: NORMAL BILATERAL LOWER EXTREMITY ARTERIAL DOPPLER WITHOUT ABIs. Assessment & Plan - Diagnosis (1) Diabetes mellitus Qualifiers: Diabetes mellitus type: type 2 Diabetes mellitus shelter insulin use: without shelter use Diabetes mellitus complication status: with skin complications Diabetes mellitus complication detail: with other skin complication Qualified Code(s): E11.628 - Type 2 diabetes mellitus with other skin complications Is this a current diagnosis for this admission?: Yes (2) Diabetic infection of left foot Is this a current diagnosis for this admission?: Yes (3) Peripheral vascular disease Is this a current diagnosis for this admission?: Yes - Time Time Spent with patient: 15-24 minutes - Plan Summary Plan Summary: Continue IV antibiotics Continue Wound VAC [facility] and[facility]or Wound Vac at [facility]
[2017-09-21 20:57] LABS: ANION GAP 10 (5-19); BLOOD UREA NITROGEN 18 mg/dL (7-20); CALCIUM 9.8 mg/dL (8.4-10.2); CARBON DIOXIDE 29 mmol/L (22-30); CHLORIDE 96 mmol/L (98-107); GLUCOSE 140 mg/dL (75-110); POTASSIUM 4.5 mmol/L (3.6-5.0); SODIUM 134.7 mmol/L (137-145)
[2017-09-22] MEDS: KETOROLAC TROMETHAMINE 10 MG TABLET PO PRN ×2 (03:12→09:09)
[2017-09-22] MEDS: AZTREONAM 1 GM in DEXTROSE 5%-WATER 50 ML IV SCH ×2 (06:28→15:01)
[2017-09-22] MEDS: GLIPIZIDE XL 5 MG TAB.ER.24 PO SCH ×2 (07:38→17:13)
[2017-09-22] MEDS: METFORMIN HCL 500 MG TABLET PO SCH ×2 (07:38→17:13)
--- NOTE | 2017-09-22 08:24 | OPERATIVE REPORT E ---
Operative Report NAME: TIMO RODRIGUEZ : 1955 AGE: 62Y DATE OF SURGERY: 09/22/2017 ROOM: 209 PREOPERATIVE DIAGNOSIS: Necrotic tissue on the left big toe medial side. POSTOPERATIVE DIAGNOSIS: Necrotic tissue on the left big toe medial side. PROCEDURE: Debridement of necrotic tissue along the left big toe medial side at the interphalangeal joint area. SURGEON: SANDOVAL NYE M.D. INDICATIONS: This is a 62-year-old male diabetic post I and D of abscess between the big toe and the second toe webspace. He then had a wound VAC. The wound VAC somehow was discontinued early this morning and I was called by the nursing split and drum room supervisor to look at the wound at 2 a.m. On examination the wound VAC site appears to have poor granulation tissue but appears to be quite dry. However, the big toe on the medial side has a necrotic area, yellowish, just less than 1 cm in diameter. This was sharply debrided with a full thickness of skin down to the subcutaneous area with some minimal serous drainage. The wound VAC will be placed and the freshly debrided area along the big toe will be included in the wound VAC. DICTATING PHYSICIAN: SANDOVAL NYE M.D. [id number] PHY#: [id number] ID: [id number] JOB#: [id number] ACCT: [id number] cc:SANDOVAL NYE M.D. >
[2017-09-22] MEDS ORDERED: ASPIRIN 325 MG TABLET, ENT COATED PO SCH (10:00)
--- NOTE | 2017-09-22 10:00 | PDOC PROGRESS REPORT ---
Subjective Progress Note for:: 09/22/17 Reason For Visit: SEPTIC DIABETIC LEFT FOOT Having more arthritic pain in knees this morning. Physical Exam Vital Signs: Temp Pulse Resp BP Pulse Ox 97.5 F 57 L 18 126/64 H 96 09/22/17 07:39 09/22/17 07:39 09/22/17 07:39 09/22/17 07:39 09/22/17 07:39 Intake & Output 09/21/17 09/22/17 09/23/17 06:59 06:59 06:59 Intake Total 1580 1220 Balance 1580 1220 General appearance: PRESENT: no acute distress Extremities exam: PRESENT: other - VAC in place; left great toe and distal foot erythema resolving Results Laboratory Results: 09/19/17 05:36 09/21/17 20:25 09/21/17 20:25 Sodium 134.7 L Potassium 4.5 Chloride 96 L Carbon Dioxide 29 Anion Gap 10 BUN 18 Creatinine 0.81 Est GFR ( Amer) > 60 Est GFR (Non-Af Amer) > 60 Glucose 140 H Calcium 9.8 09/14/17 22:20 Foot - Tissue Gram Stain - Final 09/14/17 22:20 Foot - Tissue Wound Culture - Final Corynebacterium Species Strep Anginosus Group Staphylococcus Epidermidis Prevotella Species Bacteroides Species 09/17/17 10:13 Foot - Abscess Gram Stain - Final 09/17/17 10:13 Foot - Abscess Wound Culture - Final NO AEROBIC OR ANAEROBIC ORGANISMS RECOVERED Impressions: Foot X-Ray 09/14/17 17:21 IMPRESSION: SOFT TISSUE SWELLING WITH ULCERATION AND SOFT TISSUE GAS IN THE PLANTAR SOFT TISSUES. CHRONIC BONY CHANGES. NO ACUTE BONY FINDINGS. Lower Extremity Ultrasound 09/18/17 09:35 IMPRESSION: NORMAL BILATERAL LOWER EXTREMITY ARTERIAL DOPPLER WITHOUT ABIs. Assessment & Plan - Diagnosis (1) Diabetic infection of left foot Is this a current diagnosis for this admission?: Yes Plan: Hospital day 8 status post debridement left foot, intravenous antibiotics, VAC therapy, with clinical improvement. Recommendations: 1. Agree with outpatient wound VAC therapy, and specialty sandal which he is equipped with 2. Currently reviewing his polymicrobial infection; I believe we can switch him to oral antibiotics and sent home on Augmentin 500 mg p.o. 3 times daily. (2) Necrotizing soft tissue infection Is this a current diagnosis for this admission?: Yes (3) Smoker Is this a current diagnosis for this admission?: Yes (4) Diabetes mellitus Qualifiers: Diabetes mellitus type: type 2 Diabetes mellitus intermodal customer service insulin use: without intermodal customer service use Diabetes mellitus complication status: with skin complications Diabetes mellitus complication detail: with other skin complication Qualified Code(s): E11.628 - Type 2 diabetes mellitus with other skin complications Is this a current diagnosis for this admission?: Yes (5) Peripheral vascular disease Is this a current diagnosis for this admission?: Yes (6) Systolic ejection murmur Is this a current diagnosis for this admission?: Yes - Time Time Spent with patient: 15-24 minutes Smoking Cessation Education: 3 to 10 minutes
[2017-09-22] MEDS: HYDROCHLOROTHIAZIDE 25 MG TABLET PO SCH (10:26)
[2017-09-22] MEDS: AMLODIPINE BESYLATE 5 MG TABLET PO SCH (10:26)
[2017-09-22] MEDS: LISINOPRIL 10 MG TABLET PO SCH (10:26)
[2017-09-22] MEDS: CARVEDILOL 12.5 MG TABLET PO SCH (10:26)
[2017-09-22] MEDS ORDERED: CLINDAMYCIN 600 MG/D5W RTU 600 MG/50 ML RTUPB IV ONE (11:30)
[2017-09-22] MEDS: INSULIN LISPRO 100 UNIT/ML 3 ML VIAL SUBCUT PRN ×2 (12:36→17:13)
--- NOTE | 2017-09-22 17:09 | PDOC PROGRESS REPORT ---
Subjective Progress Note for:: 09/22/17 Subjective:: Patient says he is very much improved Patient is patient is to be discharged by surgical attending blood pressure is controlled Reason For Visit: SEPTIC DIABETIC LEFT FOOT Physical Exam Vital Signs: Temp Pulse Resp BP Pulse Ox 97.7 F 63 17 131/61 H 97 09/22/17 15:30 09/22/17 15:30 09/22/17 15:30 09/22/17 15:30 09/22/17 15:30 Intake & Output 09/21/17 09/22/17 09/23/17 00:59 00:59 00:59 Intake Total 3090 1959 Balance 3090 1959 Weight 102.2 kg General appearance: PRESENT: no acute distress, well-developed Head exam: PRESENT: atraumatic, normocephalic Eye exam: PRESENT: conjunctiva pink, EOMI, PERRLA. ABSENT: scleral icterus Neck exam: ABSENT: carotid bruit, JVD, lymphadenopathy, thyromegaly Respiratory exam: PRESENT: clear to auscultation zabrina. ABSENT: rales, rhonchi, wheezes Cardiovascular exam: PRESENT: RRR. ABSENT: diastolic murmur, rubs, systolic murmur Extremities exam: PRESENT: other - Left food Wound VAC in place Big toe still reddened Results Laboratory Results: 09/19/17 05:36 09/21/17 20:25 09/21/17 20:25 Sodium 134.7 L Potassium 4.5 Chloride 96 L Carbon Dioxide 29 Anion Gap 10 BUN 18 Creatinine 0.81 Est GFR ( Amer) > 60 Est GFR (Non-Af Amer) > 60 Glucose 140 H Calcium 9.8 09/14/17 22:20 Foot - Tissue Gram Stain - Final 09/14/17 22:20 Foot - Tissue Wound Culture - Final Corynebacterium Species Strep Anginosus Group Staphylococcus Epidermidis Prevotella Species Bacteroides Species Impressions: Foot X-Ray 09/14/17 17:21 IMPRESSION: SOFT TISSUE SWELLING WITH ULCERATION AND SOFT TISSUE GAS IN THE PLANTAR SOFT TISSUES. CHRONIC BONY CHANGES. NO ACUTE BONY FINDINGS. Lower Extremity Ultrasound 09/18/17 09:35 IMPRESSION: NORMAL BILATERAL LOWER EXTREMITY ARTERIAL DOPPLER WITHOUT ABIs. Assessment & Plan - Diagnosis (2) Diabetes mellitus Qualifiers: Diabetes mellitus type: type 2 Diabetes mellitus jail insulin use: without termite control technician use Diabetes mellitus complication status: with skin complications Diabetes mellitus complication detail: with other skin complication Qualified Code(s): E11.628 - Type 2 diabetes mellitus with other skin complications Is this a current diagnosis for this admission?: Yes (3) Hypertension Qualifiers: Hypertension type: essential hypertension Qualified Code(s): I10 - Essential (primary) hypertension Is this a current diagnosis for this admission?: Yes (4) Peripheral vascular disease Is this a current diagnosis for this admission?: Yes - Time Time Spent with patient: Patient may be discharged on p.o. antibiotics as per Dr. Ruby continue antihypertensive meds including Coreg 12.5 mg p.o. twice daily Amlodipine 5 mg daily Hydrochlorothiazide 25 mg daily Lisinopril 20 mg daily Time Spent with patient: 25-34 minutes
[2017-09-22] MEDS ORDERED: CLINDAMYCIN 600 MG/D5W RTU 600 MG/50 ML RTUPB IV SCH (18:00)
[2017-09-22 19:39] VITALS: BP 132/71
--- NOTE | 2017-09-25 08:54 | DISCHARGE SUMMARY E ---
Discharge Summary NAME: TIMO RODRIGUEZ : 1955 AGE: 62Y ADMITTED: 09/14/2017 DISCHARGED: 09/22/2017 SUMMARY OF HOSPITALIZATION: The patient is a 62-year-old white male with history of diabetes, chronic ulceration to his left great toe, presents to the Emergency Department with swollen, erythematous and purulent discharge from his left great toe, first webspace. X-ray showed gas in the soft tissues. The patient was admitted to the Surgical Service for definitive management. The patient was taken to the operating room by Dr. Ruby on 09/14/2017 where he underwent vigorous debridement of his skin, subcutaneous tissue and superficial fascia of the left foot at the first webspace and plantar surface of the right great toe. The patient grew out a variety of organisms including bacteroides, Prevotella, staph, and strep. He was maintained on Unasyn and aztreonam intravenously. Over the next several days, the patient's condition improved with development of granulation tissue. He did have a duplex ultrasound of the lower extremities specifically evaluating the arterial supply to his foot, and he was found to have no significant abnormalities. The patient was started on a surgical boot and wound VAC and this was maintained during his hospitalization. At approximately 1 week of hospitalization, he was felt to have received maximum benefit from the hospitalization and was discharged home. FINAL DIAGNOSES: 1. Deep soft tissue infection left foot, status post left great toe and first webspace debridement. 2. Diabetes mellitus. DISPOSITION: Patient discharged home to the care of his family. DISCHARGE INSTRUCTIONS: He will take Augmentin 500 mg 3 times a day and arrangements are being made [facility]. [facility] approximately 1 week. DICTATING PHYSICIAN: ABHILASH RUBY M.D. [id number] PHY#: [id number] ID: [id number] JOB#: [id number] ACCT: [id number] cc:Kenny QUIGLEY PA >
== END 2017-09-22 20:08 | disposition home health service (06) | DRG 623 ==
LOC: ER 16:44 → EH 20:33 → 2N 23:04
PROVIDERS: ADMIT Surgery; ATTEND Surgery
PROC: 0HDNXZZ Extraction of Left Foot Skin, External Approach (ICD-10-PCS; 2017-09-14)
PROC: 3E0234Z Introduction of Serum, Toxoid and Vaccine into Muscle, Percutaneous Approach (ICD-10-PCS; 2017-09-14)
PROC: 0JBR0ZZ Excision of Left Foot Subcutaneous Tissue and Fascia, Open Approach (ICD-10-PCS; principal; 2017-09-14 21:45)
PROC: 0JDR0ZZ Extraction of Left Foot Subcutaneous Tissue and Fascia, Open Approach (ICD-10-PCS; 2017-09-22)
DX: E11.621 Type 2 diabetes mellitus with foot ulcer (principal); L97.528 Non-pressure chronic ulcer of other part of left foot with other specified severity; L08.89 Other specified local infections of the skin and subcutaneous tissue; E11.610 Type 2 diabetes mellitus with diabetic neuropathic arthropathy; E11.40 Type 2 diabetes mellitus with diabetic neuropathy, unspecified; I10 Essential (primary) hypertension; I73.9 Peripheral vascular disease, unspecified; L84 Corns and callosities; R01.1 Cardiac murmur, unspecified; M79.672 Pain in left foot; I25.10 Atherosclerotic heart disease of native coronary artery without angina pectoris; B95.4 Other streptococcus as the cause of diseases classified elsewhere; B95.7 Other staphylococcus as the cause of diseases classified elsewhere; B96.6 Bacteroides fragilis [B. fragilis] as the cause of diseases classified elsewhere; B96.89 Other specified bacterial agents as the cause of diseases classified elsewhere; F17.210 Nicotine dependence, cigarettes, uncomplicated; Z79.84 Long term (current) use of oral hypoglycemic drugs; Z79.82 Long term (current) use of aspirin; Z79.899 Other long term (current) drug therapy; Z23 Encounter for immunization
CPT/HCPCS: 01470; 36415; 80048; 80053; 82803; 82962; 83605; 85025; 87040; 87070; 87075; 87077; 87186; 87205; 90715; 93005; 93010; 93925; 99285; J0295; J0692; J1815; J2250; J2405; J2704; J3010; J3370; J3490; J7030; L4386

== ENCOUNTER → 2017-10-06 | Outpatient (CLI) | payer OTHER, MEDICARE ==
[2017-10-06 15:07] LABS: ABSOLUTE EOSINOPHILS # (AUTO) 0.9 10^3/uL (0.0-0.6); ABSOLUTE LYMPHOCYTES (AUTO) 1.5 10^3/uL (0.5-4.7); ABSOLUTE MONOCYTES (AUTO) 0.6 10^3/uL (0.1-1.4); BASOPHILS % (AUTO) 0.3 % (0-2); EOSINOPHILS % (AUTO) 9.2 % (0-6); HEMATOCRIT 39.7 % (37.9-51.0); HEMOGLOBIN 13.7 g/dL (13.5-17.0); LYMPHOCYTES % (AUTO) 15.1 % (13-45); MEAN CORPUSCULAR HGB CONC 34.4 g/dL (32.0-36.0); MEAN CORPUSCULAR VOLUME 87 fl (80-97); MONOCYTES % (AUTO) 5.6 % (3-13); PLATELET COUNT 318 10^3/uL (150-450); RED BLOOD COUNT 4.54 10^6/uL (4.35-5.55); RED CELL DISTRIBUTION WIDTH 13.4 % (11.5-14.0); SEGMENTED NEUTROPHILS % (AUTO) 69.8 % (42-78); TOTAL CELLS COUNTED % (AUTO) 100 %
[2017-10-06 15:31] LABS: ALANINE AMINOTRANSFERASE 30 U/L (21-72); ALBUMIN 4.3 g/dL (3.5-5.0); ALKALINE PHOSPHATASE 97 U/L (38-126); ANION GAP 12 (5-19); ASPARTATE AMINO TRANSFERASE 18 U/L (17-59); BILIRUBIN,DIRECT 0.3 mg/dL (0.0-0.4); BILIRUBIN,TOTAL 0.5 mg/dL (0.2-1.3); BLOOD UREA NITROGEN 20 mg/dL (7-20); C-REACTIVE PROTEIN 9.5 mg/L (<10.0); CARBON DIOXIDE 29 mmol/L (22-30); CHLORIDE 94 mmol/L (98-107); GLUCOSE 209 mg/dL (75-110); SODIUM 134.7 mmol/L (137-145); TOTAL PROTEIN 7.3 g/dL (6.3-8.2)
[2017-10-06 15:46] LABS: ERYTHROCYTE SEDIMENTATION RATE 33 mm/hr (0-20)
--- NOTE | 2017-10-06 16:34 | RADIOLOGY REPORT (SQ) ---
EXAM DESCRIPTION: FOOT LEFT COMPLETE COMPLETED DATE/TIME: 10/06/2017 2:46 pm REASON FOR STUDY: NON-PRS CHRONIC ULCER OTH PRT LEFT FOOT W NECROSIS OF BONE L97.524 NON-PRS CHRONI C ULCER OTH PRT LEFT FOOT W NECROSIS O COMPARISON: 09/14/2017. NUMBER OF VIEWS: Three views. TECHNIQUE: AP, lateral and oblique radiographic images acquired of the left foot. LIMITATIONS: None. FINDINGS: There is subcutaneous gas along the plantar aspect of the proximal 1st phalanx. Subtle jory cency along the plantar cortical margin of the distal 1st phalanx but no periosteal reaction. No for eign body. IMPRESSION: Cellulitis. No definitive osteomyelitis. TECHNICAL DOCUMENTATION: JOB ID: [id number] [employer]- All Rights Reserved Reading location - IP/workstation name: [email or web address]
== END ==
LOC: OD 14:17
PROVIDERS: ATTEND Preventive Medicine Undersea and Hyperbaric Medicine
DX: E11.621 Type 2 diabetes mellitus with foot ulcer (principal); L97.524 Non-pressure chronic ulcer of other part of left foot with necrosis of bone; L03.116 Cellulitis of left lower limb
CPT/HCPCS: 36415; 80053; 83036; 85025; 85652; 86140

== ENCOUNTER → 2017-10-14 | Day surgery (SDC) | payer OTHER ==
[~2017-10-14] MED LIST: NORMAL SALINE 10 ML SDV (AFTER EACH USE) IV PRN; NORMAL SALINE 10 ML SDV (SCHEDULED) IV SCH; VANCOMYCIN HCL 1,500 MG in DEXTROSE 5%-WATER 250 ML IV ONE
[2017-10-14 14:24] VITALS: BP 130/75
--- NOTE | 2017-10-14 15:50 | RADIOLOGY REPORT (SQ) ---
EXAM DESCRIPTION: PICC INSERTION; FLUORO/CV PLACEMENT; U/S GUIDE FOR VASCULAR ACCESS COMPLETED DATE/TIME: 10/14/2017 11:44 am REASON FOR STUDY: IV ABX L97.524 NON-PRS CHRONIC ULCER OTH PRT LEFT FOOT W NECROSIS O .522 NON- PRS CHRONIC ULCER OTH PRT LEFT FOOT W FAT LAYER COMPARISON: None. FLUOROSCOPY TIME: 42 seconds 1 ultrasound and 1 digital fluoroscopic chest images saved to PACS. TECHNIQUE: Fluoroscopic and ultrasound guided PICC placement. LIMITATIONS: None. PROCEDURE: After written consent and assessment were obtained, the patient was brought into the fluo roscopy room and place supine on the table. Ultrasound evaluation of potential access sites were perf ormed. After successfully identifying a patent left basilic vein, the left arm was prepped and draped in a sterile fashion along with the ultrasound probe. The entry site was anesthetized with 1% lidoca ine. A 21 gauge 7 cm needle was advanced through the skin and into the basilic vein under live ultras ound guidance. An ultrasound image was saved to PACS confirming access site. A .018 guide wire was then inserted through the needle and into the venous system. The needle was the removed and an 11 andrea de scalpel was used to make a 1cm skin incision. A 5 fr peel-away sheath was advanced over the wire and into the venous system. A measurement was then made using the existing wire and live fluoroscopic guidance. The wire was then removed and the trimmed. The PICC was advanced through the peel-away she ath and into the venous system. The peel-away sheath was removed and the catheter was adhered to the patients arm with a stat lock. The catheter was then aspirated and flushed and a sterile bandage was placed over the access site. A fluoroscopic spot image was saved to PACS confirming the catheter tip within the superior vena cava. IMPRESSION: SUCCESSFUL PLACEMENT OF A 5 FR DUAL LUMEN 40 CM PICC IN THE LEFT BASILIC VEIN. COMMENT: Patient medication list reviewed: Yes- Quality ID# 130:Eligible professional attests to doc umenting in the medical record they obtained, updated, or reviewed the patient's current medications. . Quality ID 145: Final reports for procedures using fluoroscopy that document radiation exposure dillan mary, or exposure time and number of fluorographic images (if radiation exposure indices are not avail able) Quality ID #76: The patient was prepped and draped using maximum sterile barrier technique including cap, mask, sterile gown, sterile gloves, a large sterile sheet, hand hygiene, and 2% Chlorhexidine fo r cutaneous antisepsis. When ultrasound is used, sterile ultrasound techniques are followed requiring sterile gel and sterile probes. TECHNICAL DOCUMENTATION: JOB ID: [id number] 1901 [employer]- All Rights Reserved Reading location - IP/workstation name: [email or web address] [id number]
== END ==
LOC: RAD 10:16
PROVIDERS: ATTEND Preventive Medicine Undersea and Hyperbaric Medicine
DX: L97.524 Non-pressure chronic ulcer of other part of left foot with necrosis of bone (principal); L97.522 Non-pressure chronic ulcer of other part of left foot with fat layer exposed
CPT/HCPCS: 96365; 96366; 36569; 77001; 76937; C1769; J7060; J3370; J1642

== ENCOUNTER → 2017-10-30 | Outpatient (CLI) | payer MEDICARE ==
--- NOTE | 2017-10-30 16:16 | RADIOLOGY REPORT (SQ) ---
EXAM DESCRIPTION: FOOT LEFT COMPLETE COMPLETED DATE/TIME: 10/30/2017 3:47 pm REASON FOR STUDY: NON-PRS CHRONIC ULCER OTH PRT LEFT FOOT W NECROSIS OF BONE L97.524 NON-PRS CHRONI C ULCER OTH PRT LEFT FOOT W NECROSIS O COMPARISON: 10/06/2017 NUMBER OF VIEWS: Three views. TECHNIQUE: AP, lateral and oblique radiographic images acquired of the left foot. LIMITATIONS: None. FINDINGS: No osteomyelitis is seen. MINERALIZATION: Normal. BONES: No acute fracture or dislocation. Osseous erosions are seen in the base of the 3rd proximal p halanx. This may be secondary to irregular healing of the fracture. JOINTS: No effusions. SOFT TISSUES: No soft tissue swelling. No foreign body. OTHER: No other significant finding. IMPRESSION: There is irregularity at the base of the 3rd proximal phalanx as described. TECHNICAL DOCUMENTATION: JOB ID: [id number] [email or web address]- All Rights Reserved Reading location - IP/workstation name: [email or web address]
== END ==
LOC: OD 15:24
PROVIDERS: ATTEND Preventive Medicine Undersea and Hyperbaric Medicine
DX: L97.524 Non-pressure chronic ulcer of other part of left foot with necrosis of bone (principal)

== ENCOUNTER → 2018-09-17 | Outpatient (CLI) | payer OTHER ==
--- NOTE | 2018-09-17 13:15 | RADIOLOGY REPORT (SQ) ---
EXAM DESCRIPTION: MRI LT LOWER EXTREMITY WITHOUT COMPLETED DATE/TIME: 09/17/2018 12:42 pm REASON FOR STUDY: NON-PRESSURE CHRONIC ULCER OF LEFT HEEL L97.422 NON-PRS CHR ULCER OF LEFT HEEL AN D MIDFOOT W FAT LAY COMPARISON: None. TECHNIQUE: T1-weighted, T2-weighted, and gradient echo noncontrast multiplanar imaging of the left f oot. LIMITATIONS: None. FINDINGS: MARROW SIGNAL: No marrow signal abnormalities worrisome for radiographically occult fractu re or marrow edema to suggest osteomyelitis. JOINT EFFUSION: No significant effusions. PLANTAR FASCIA: Normal as visualized. TARSOMETATARSAL AND TOE ARTICULATIONS: The intertarsal joints and tarsometatarsal joints are abnormal . There is joint space narrowing, articular surface sclerosis and fragmentation, and bulky bony spur ring worrisome for changes of Charcot foot. These are best seen on axial series 10, images 5-9. INTERMETATARSAL SPACES AND PLANTAR PLATES: Intact. No soft tissue mass to suggest a neuroma. SOFT TISSUES: There is diffuse edema throughout the is midfoot deep soft tissues is is along the dors al and plantar aspect of the foot is. Findings indicate cellulitis or is inflammation/infection with out abscess. OTHER: No other significant finding. IMPRESSION: No bone marrow signal abnormalities worrisome for occult fracture or osteomyelitis There is joint space narrowing, articular surface sclerosis and osteophyte formation along the intert arsal joints and tarsometatarsal joints. Changes of Charcot foot are suspected Diffuse soft tissue edema throughout the forefoot and midfoot without abscess or well-circumscribed f luid pocket. Findings likely represents cellulitis without abscess TECHNICAL DOCUMENTATION: JOB ID: [id number]- All Rights Reserved Reading location - IP/workstation name: [email or web address]
== END ==
LOC: RAD 11:44
PROVIDERS: ATTEND Podiatrist Foot & Ankle Surgery
DX: L97.422 Non-pressure chronic ulcer of left heel and midfoot with fat layer exposed (principal)

== ENCOUNTER 2019-03-15 10:39 | Day surgery (SDC) | payer OTHER, MEDICARE ==
[~2019-03-15 10:39] MED LIST changes: -NORMAL SALINE 10 ML SDV (AFTER EACH USE) IV PRN; -NORMAL SALINE 10 ML SDV (SCHEDULED) IV SCH; +PROPOFOL INJ 200 MG/20 ML VIAL IV ONE; -VANCOMYCIN HCL 1,500 MG in DEXTROSE 5%-WATER 250 ML IV ONE
--- NOTE | 2019-03-15 13:12 | Operative Report ---
Operative Report DATE OF SURGERY: 03/15/19 Operative Report: The risks, benefits and alternatives of the procedure including the risk of bleeding, perforation requiring surgery have been explained to the patient in detail and informed consent has been obtained. Patient was taken back to the endoscopy suite placed in a left, lateral decubital position. Timeout was called. Propofol medication is administered. Rectal examination is done which did not reveal any masses, tears or fissures. An Olympus videoscope was introduced into the patient's rectum. The scope was then carefully advanced all the way to the cecum. The cecum was identified by the usual anatomical landmarks of the ileocecal valve as well as the appendiceal office. Photodocumentation is obtained. Scope was then sequentially pulled back via the various segments of the colon including the ascending colon, hepatic flexure, transverse colon, splenic flexure, descending colon finding to the rectosigmoid portions of the colon. Retroflexion maneuvers performed. PREOPERATIVE DIAGNOSIS: Colorectal cancer screening POSTOPERATIVE DIAGNOSIS: Diverticulosis without any evidence of diverticulitis. Internal hemorrhoids. Colon and the polyp ascending colon removed via biopsy forceps. Random biopsies, right side colon Rule out collagenous colitis OPERATION: Colonoscopy with biopsy SURGEON: DALIA CORRIGAN ANESTHESIA: LMAC TISSUE REMOVED OR ALTERED: As noted above. COMPLICATIONS: None. ESTIMATED BLOOD LOSS: None. INTRAOPERATIVE FINDINGS: As noted above. PROCEDURE: Patient tolerated the procedure well. No immediate postprocedure complications are noted. Patient is discharged in good condition. Discharge date 03/15/2019. Discharge diet: Regular. Discharge activity: Regular. 2 to 3-week follow-up to discuss findings. Patient is instructed to call the office or proceed to the emergency room should there be any further problems questions. Wait on the pathology. 3 to 5-year surveillance colonoscopy.
[2019-03-15 13:17] VITALS: BP 128/77
--- NOTE | 2019-03-16 00:26 | EKG REPORT ---
SEVERITY:- BORDERLINE ECG - SINUS RHYTHM BORDERLINE T ABNORMALITIES, ANT-LAT LEADS : Confirmed by: Nina Parks MD 16-Mar-2019 00:25:46
== END 2019-03-15 13:18 | disposition home or self-care (01) ==
LOC: END 10:39
PROVIDERS: ATTEND Internal Medicine Gastroenterology
DX: Z12.11 Encounter for screening for malignant neoplasm of colon (principal); D12.2 Benign neoplasm of ascending colon; K57.30 Diverticulosis of large intestine without perforation or abscess without bleeding; K64.8 Other hemorrhoids; Z86.010 Personal history of colon polyps; J44.9 Chronic obstructive pulmonary disease, unspecified; I10 Essential (primary) hypertension; I25.2 Old myocardial infarction; E11.9 Type 2 diabetes mellitus without complications; Z87.891 Personal history of nicotine dependence; Z79.51 Long term (current) use of inhaled steroids; Z79.4 Long term (current) use of insulin; Z79.899 Other long term (current) drug therapy
CPT/HCPCS: 45380; 82962; 88305 ×2; 93005; 93010; 00811; J2704; 811